=== PATIENT | male | born 1995 | race Caucasian/White ===

== ENCOUNTER 2018-06-16 19:52 | Inpatient (IN) ==
[2018-06-16] MEDS ORDERED: Tetanus/Diphtheria Toxoid Adult Vaccine Inj 0.5 ML Vial IM ONE (20:26)
[2018-06-16] MEDS ORDERED: Sod Chloride 0.9% Inj 1,000 ML IV.CONT SCH (20:30)
[2018-06-16] MEDS ORDERED: Diphtheria/Tetanus/Pertussis Vaccine Inj 0.5 ML Syringe IM ONE (20:47)
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
[2018-06-16 21:14] LABS: Baso # (Auto) 0.1 th/mm3 (0.0-0.2); Baso % (Auto) 2.5 % (0.0-2.0); Eos # (Auto) 0.2 th/mm3 (0.0-0.4); Eos % (Auto) 4.1 % (0.0-4.0); Hematocrit 41.7 % (39.0-51.0); Hemoglobin 13.8 gm/dL (13.0-17.0); Lymph # (Auto) 1.9 th/mm3 (1.0-4.8); Lymph % (Auto) 42.2 % (9.0-44.0); Mean Corpuscular HGB Conc 33.2 % (32.0-36.0); Mean Corpuscular Hemoglobin 28.4 pg (27.0-34.0); Mean Corpuscular Volume 85.8 fL (80.0-100.0); Mean Platelet Volume 8.2 fL (7.0-11.0); Mono # (Auto) 0.5 th/mm3 (0.0-0.9); Mono % (Auto) 10.4 % (0.0-8.0); Neut # (Auto) 1.9 th/mm3 (1.8-7.7); Neut % (Auto) 40.8 % (16.0-70.0); Platelet Count 187 th/mm3 (150-450); Red Blood Count 4.86 mil/mm3 (4.50-5.90); Red Cell Distribution Width 14.2 % (11.6-17.2); White Blood Count 4.6 th/mm3 (4.0-11.0)
[2018-06-16 21:29] LABS: Activated Partial Thrombo Time 23.6 sec (24.3-30.1); INR 1.1 Ratio; Prothrombin Time 11.3 sec (9.8-11.6)
[2018-06-16] MEDS ORDERED: ceFAZolin 2 GM Premix Inj 2 GM/50 ML PIGGYBACK IV.SIG ONE (21:32)
[2018-06-16] MEDS ORDERED: Dexmedetomidine Inj 200 MCG/2 ML Vial ONE (21:35)
[2018-06-16] MEDS ORDERED: Lidocaine 2% Inj 50 ML Vial ONE (21:44)
[2018-06-16] MEDS ORDERED: Bupivacaine PF 0.5% Inj 30 ML Vial ONE (21:44)
[2018-06-16 21:50] LABS: Calcium 7.2 mg/dL (8.5-10.1); Carbon Dioxide 25.6 meq/L (21.0-32.0); Potassium 3.2 meq/L (3.5-5.1)
[2018-06-16 22:03] LABS: Total Protein 6.3 g/dL (6.4-8.2)
[2018-06-16] MEDS ORDERED: Bisacodyl 10 MG Supp RECTAL PRN (22:17)
[2018-06-16] MEDS ORDERED: Phenylephrine/NS 1000 MCG/10ML Syringe IV.PUSH ONE (22:30)
[2018-06-16] MEDS ORDERED: Succinylcholine Inj 100 MG/5 ML Syringe IV.PUSH ONE (22:30)
[2018-06-17] MEDS ORDERED: HYDROmorphone PF Inj 2 MG/ML Vial ONE (00:11)
--- NOTE | 2018-06-17 00:51 | P.OP ---
Date of procedure: 06/21/18 Procedure: exploration and repair 1. radial artery left forearm 2. repair lacerations left forearm 3. repair flexor digitorum profundus and radial slip of flexor digitorum superficialis zone II left index finger 4. repair laceration left index finger 5. repair laceration of left thumb 6. repair lacerations left middle finger Anesthesia: GETA Surgeon: Burton Wiseman MD Estimated blood loss (mL): 10 Tourniquet time (min): 70 Pathology: none sent Operation and Findings: longitudinal laceration over the volar aspect of the mid forearm measuring 10- 12 cms longitudinal laceration over the volar radial aspect of the distal forearm measuring 6-7cms incomplete laceration of the radial artery distal forearm complex laceration left index finger with laceration of the FDP and FDS zone II complex laceration with a distally based flap over the radial aspect of the thumb pulp two lacerations over the middle finger volar aspect measuring 2 cms each
[2018-06-17] MEDS ORDERED: fentaNYL Citrate Inj 100 MCG/2 ML Ampul ONE (01:02)
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
[2018-06-17] MEDS: Sod Chloride 0.9% Inj 1,000 ML IV.CONT SCH ×2 (02:10→09:34)
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
[2018-06-17 05:18] LABS: Amphetamine Screen,Urine Neg (Neg); Barbiturate Screen,Urine Neg (Neg); Cannabinoid Screen,Urine Neg (Neg); Cocaine Screen,Urine Neg (Neg)
[2018-06-17 05:32] LABS: Opiate Screen,Urine Neg (Neg)
[2018-06-17 05:36] LABS: Anion Gap 9 meq/L (5-15); Blood Urea Nitrogen 6 mg/dL (7-18); Calcium 7.9 mg/dL (8.5-10.1); Carbon Dioxide 26.2 meq/L (21.0-32.0); Chloride 107 meq/L (98-107); Glomerular Filtration Rate Greater Than 89 mL/min (>89); Glucose,Random 131 mg/dL (74-106); Potassium 3.9 meq/L (3.5-5.1); Sodium 142 meq/L (136-145)
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
== END 2018-06-17 17:39 | disposition home or self-care (01) ==
LOC: NEPC 19:52 → NEDA 22:17 → HPAC 22:20 → N06 06-17 02:47
PROVIDERS: ADMIT Hospitalist; ATTEND Hospitalist